=== PATIENT | female | born 1975 | race Caucasian/White ===

== ENCOUNTER 2020-06-21 08:59 | Observation (INO) | payer OTHER, BC, SELFPAY ==
[2020-06-21] VITALS (9 sets, daily range): BP systolic 109–139; BP diastolic 73–90; PULSE 80–105; RESP 16–22; TEMP 36.4–37.1; O2SAT 98–100; BMI 38.9; BMI 39.0; BMI 39.2
--- NOTE | 2020-06-21 09:26 | ED.DCSUM_ITS ---
History of Present Illness Chief Complaint: Abd Pain Informant: Patient Onset: Days Context: Gradual Onset Current Severity: Moderate Maximum Severity: Moderate Narrative: Patient presents secondary to left upper quadrant pain wraps around to the left CVA region. Patient states pain is been ongoing for couple days and was gradual in onset. She denies fever or chills. No vomiting. No diarrhea or constipation. No urinary symptoms. Patient was seen by her PCP and reportedly blood work was unremarkable. She had an ultrasound this morning but does not know the results of this. She does report feeling short of breath because she has increased abdominal pain when she breathes deeply. - Past Medical History (1) IBS (irritable bowel syndrome) Status: Chronic Past Medical History - Allergies and Home Meds Allergies/Adverse Reactions: Allergies sulfamethoxazole [From Bactrim] Allergy (Mild, Verified 06/21/20 09:00) Rash trimethoprim [From Bactrim] Allergy (Mild, Verified 06/21/20 09:00) Rash naproxen [From Naprosyn] Allergy (Verified 06/21/20 09:00) Anaphylaxis topiramate [From Topamax] Allergy (Verified 06/21/20 09:00) Hives sulfate drugs Allergy (Uncoded 06/21/20 09:00) Hives tape Allergy (Uncoded 06/21/20 09:00) Rash Primary Care Physician: Monica Carmen MD [Primary Care Provider] - Surgical History: appendectomy, cholecystectomy Smoking Status: Never smoker Review of Systems General: Denies: Chills, Fever Eyes: Denies: Visual changes - bilaterally ENT: Denies: Bilateral ear pain Cardiovascular: Denies: Chest pain Respiratory: Reports: Dyspnea. Denies: Cough Gastrointestinal: Reports: Abdominal pain. Denies: Vomiting, Diarrhea Genitourinary: Denies: Dysuria Musculoskeletal: Denies: Swelling, Extremity Pain Skin: Denies: Rash Neurological: Denies: Headache Hematologic: Denies: Easy bruising, Easy bleeding Allergy: Denies: Uticaria Physical Exam Vital Signs/Narrative: Vital Signs Temp Pulse Resp BP Pulse Ox 06/21/20 09:00 97.5 F L 100 21 H 139/73 H 99 Inital Vital Signs reviewed: Yes General: Well nourished, Well developed Head: Normocephalic ENT: Moist mucous membranes Cardiovascular: Regular rate, Regular rhythm Respiratory: No distress, CTA bilaterally Abdomen: Soft, Tender - Left upper quadrant tenderness to palpation.. Negative for: Guarding, Rebound tenderness Back: CVA tenderness - Mild left CVA tenderness Extremities: Nontender, No edema Skin: Normal color, No rash Neurological: Alert, Oriented x3, Normal Strength, Normal Sensation Psychological: Normal affect Diagnostic/Tx/Re-eval Impressions Abdomen/Pelvis CT 06/21/20 10:35 IMPRESSION: Focal infiltrate in the left lower lobe. Status post cholecystectomy. Sigmoid diverticulosis. Electronically Signed: Ja Pacheco MD at 13:14 EST , Service support , Chest CTA 06/21/20 10:35 IMPRESSION: Multiple bilateral pulmonary emboli. Focal infiltrate in the left lower lobe. Electronically Signed: Ja Pacheco MD at 13:16 EST , Service support , Chest X-Ray 06/21/20 11:05 IMPRESSION: Normal x-ray examination of the chest. Electronically Signed: Ja Pacheco MD at 12:11 EST , Service support , 06/21/20 10:35 Abdomen/Pelvis WITH Contrast [CT] Stat CTA Chest W/WO Contrast [CT] Stat 06/21/20 11:05 Chest 1 View (Portable) [RAD] Stat 06/21/20 10:55 Mucosa - Nose SARS-CoV-2 Antigen (Rapid) - Final Laboratory Results 06/21/20 06/21/20 06/21/20 09:55 09:55 09:55 WBC 18.6 H RBC 4.67 Hgb 13.2 Hct 40.9 MCV 87.6 MCH 28.3 MCHC 32.3 RDW Std Deviation 39.3 RDW Coeff of Renee 12.2 Plt Count 319 MPV 9.1 Immature Gran % (Auto) 0.600 Neut % (Auto) 87.6 H Lymph % (Auto) 6.8 L [place] % (Auto) 4.5 Eos % (Auto) 0.1 Baso % (Auto) 0.4 Absolute Neuts (auto) 16.3 H Absolute Lymphs (auto) 1.27 Nucleated RBC % 0 D-Dimer Quant (PE/DVT) 2.50 H* Sodium 136 Potassium 4.5 Chloride 104 Carbon Dioxide 27.0 Anion Gap 5 BUN 7 Creatinine 0.79 Estim Creat Clear Calc 76.74 Est GFR (MDRD) Af Amer 102 Est GFR (MDRD) Non-Af 84 BUN/Creatinine Ratio 8.8 L Glucose 105 Calcium 8.7 Total Bilirubin 0.40 Direct Bilirubin 0.14 AST 143 H ALT 78 H Alkaline Phosphatase 228 H Troponin I B-Natriuretic Peptide Total Protein 7.9 Albumin 3.0 L Globulin 4.9 H Lipase 140 Serum , Qual Urine Color Urine Clarity Urine pH Ur Specific [place] Urine Protein Urine Glucose (UA) Urine Ketones Urine Occult Blood Urine Nitrite Urine Bilirubin Urine Urobilinogen Ur Leukocyte Esterase Urine RBC Urine WBC Ur Squamous Epith Cells Urine Bacteria Urine Mucus 06/21/20 06/21/20 06/21/20 09:55 09:55 09:55 WBC RBC Hgb Hct MCV MCH MCHC RDW Std Deviation RDW Coeff of Renee Plt Count MPV Immature Gran % (Auto) Neut % (Auto) Lymph % (Auto) [place] % (Auto) Eos % (Auto) Baso % (Auto) Absolute Neuts (auto) Absolute Lymphs (auto) Nucleated RBC % D-Dimer Quant (PE/DVT) Sodium Potassium Chloride Carbon Dioxide Anion Gap BUN Creatinine Estim Creat Clear Calc Est GFR (MDRD) Af Amer Est GFR (MDRD) Non-Af BUN/Creatinine Ratio Glucose Calcium Total Bilirubin Direct Bilirubin AST ALT Alkaline Phosphatase Troponin I < 0.015 B-Natriuretic Peptide 20.1 Total Protein Albumin Globulin Lipase Serum , Qual NEGATIVE Urine Color Urine Clarity Urine pH Ur Specific [place] Urine Protein Urine Glucose (UA) Urine Ketones Urine Occult Blood Urine Nitrite Urine Bilirubin Urine Urobilinogen Ur Leukocyte Esterase Urine RBC Urine WBC Ur Squamous Epith Cells Urine Bacteria Urine Mucus 06/21/20 12:18 WBC RBC Hgb Hct MCV MCH MCHC RDW Std Deviation RDW Coeff of Renee Plt Count MPV Immature Gran % (Auto) Neut % (Auto) Lymph % (Auto) [place] % (Auto) Eos % (Auto) Baso % (Auto) Absolute Neuts (auto) Absolute Lymphs (auto) Nucleated RBC % D-Dimer Quant (PE/DVT) Sodium Potassium Chloride Carbon Dioxide Anion Gap BUN Creatinine Estim Creat Clear Calc Est GFR (MDRD) Af Amer Est GFR (MDRD) Non-Af BUN/Creatinine Ratio Glucose Calcium Total Bilirubin Direct Bilirubin AST ALT Alkaline Phosphatase Troponin I B-Natriuretic Peptide Total Protein Albumin Globulin Lipase Serum , Qual Urine Color Yellow Urine Clarity Sl. Cloudy Urine pH 6.0 Ur Specific [place] 1.015 Urine Protein Negative Urine Glucose (UA) Normal Urine Ketones 5 H Urine Occult Blood 25 H Urine Nitrite Negative Urine Bilirubin Negative Urine Urobilinogen Normal Ur Leukocyte Esterase Negative Urine RBC 0 SEEN Urine WBC 0-5 SEEN Ur Squamous Epith Cells 0-5 SEEN Urine Bacteria 1+ Urine Mucus 0 SEEN - EKG Initial EKG Interpretation: Sinus Rhythm - Sinus at 94 with no acute ischemia. - Medical Decision Making Patient was quite uncomfortable on examination. She was given morphine and Phenergan stating that Zofran did not work for her. CBC revealed significant leukocytosis with a white count of 18. Chemistry studies largely unremarkable. D-dimer elevated at 2.5. In light of this with the patient having left upper quadrant pain CTA of the chest was obtained as well as a CT abdomen and pelvis with p.o. and IV contrast. Test results indicate bilateral PEs with left lower lobe infiltrate. No acute findings noted in the abdomen. Patient did require a second dose of analgesics for comfort. A dose of Eliquis has been ordered along with a hypercoagulable panel. Patient states that she did have some calf tenderness approximately a week ago, but no recent travel or immobilization. She does report that her control was recently changed. She is not a smoker. In light of the infiltrate noted on CTA with elevated white count she is covered a dose of Rocephin and Zithromax. I have recommended observation overnight for pain control and monitoring her oxygenation status. I will speak with the hospitalist. 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
--- NOTE | 2020-06-21 09:27 | NURSING ---
CALLED [facility], TALKED TO ANAI IN RADIOLOGY. REQUESTED A COPY OF THE ULTRASOUND ABD DONE THIS MORNING. THEY WILL FAX IT TO US.
[2020-06-21 10:04] LABS: Absolute Lymphocyte Count 1.27 X10^3/uL (0.83-4.51); Absolute Neutrophil Count 16.3 X10^3/uL (2.0-7.7); Basophil# 0.07 X10^3/uL; Basophil% 0.4 % (0-1); Eosinophil# 0.02 X10^3/uL; Eosinophils% 0.1 % (0-5); Hematocrit 40.9 % (37-47); Hemoglobin 13.2 g/dL (12.0-15.0); Lymphocyte # 1.27 X10^3/ul (4.0); Lymphocyte % 6.8 % (19-41); Mean Corp Hgb Conc 32.3 g/dL (32-36); Mean Corpuscular Hgb 28.3 pg (27.0-32.0); Mean Corpuscular Volume 87.6 fL (81-99); Mean Platelet Vol. 9.1 fl (6.2-12.0); Monocyte# 0.84 X10^3/uL; Monocyte% 4.5 % (0-10); NRBC Flagged by Analyzer 0 % (0-5); Neutrophil # 16.31 X10^3/uL (2.7-7.7); Neutrophil % 87.6 % (47-70); Platelet Count 319 K/mm3 (150-450); RBC Distribution Width CV 12.2 % (11.6-14.6); RBC Distribution Width SD 39.3 fl (35.1-43.9); Red Blood Count 4.67 M/mm3 (4.2-5.4); White Blood Count 18.6 K/mm3 (4.4-11.0)
[2020-06-21 10:19] LABS: AST(SGOT) 143 U/L (15-37); Alanine Aminotransfer ALT/SGPT 78 U/L (13-56); Alkaline Phosphatase 228 U/L (45-117); Anion Gap 5 (5-15); BUN 7 mg/dL (7-18); BUN/Creat Ratio 8.8 RATIO (10-20); Bilirubin, Direct 0.14 mg/dL (0.00-0.30); Calcium,Total 8.7 mg/dL (8.5-10.1); Chloride 104 mmol/L (98-107); Creatinine, Serum 0.79 mg/dL (0.55-1.02); EST Glomerular Filtration Rate 84 mL/min (>60); Est Glom Filt Rate - Afr Amer 102 mL/min (>60); Estimated Creatinine Clearance 76.74 ml/min; Globulin 4.9 g/dL (2.2-4.2); Glucose 105 mg/dL (74-106); Lipase 140 U/L (73-393); Potassium 4.5 mmol/L (3.5-5.1); Protein, Total 7.9 g/dL (6.4-8.2); Sodium Level 136 mmol/L (136-145)
[2020-06-21] MEDS: Morphine 4 MG/ML Syringe IV (10:29)
[2020-06-21] MEDS: proMETHazine 25 MG/ML Syringe 12.5 MG IV (10:29)
[2020-06-21] MEDS: 0.9% Normal Saline 1,000 ML 150 ML IV (10:30)
[2020-06-21 10:35] LABS: Internal QC Validated? YES +Cl - CLEAR BKGD
--- NOTE | 2020-06-21 10:35 | CT_ITS ---
STUDY: CT ABDOMEN AND PELVIS WITH CONTRAST REASON FOR EXAM: Female, 44 years old. LUQ pain, increased SOB, nausea, elevated WBC, elevated D-dimer. RADIATION DOSAGE (If Supplied By Facility): CTDIvol = ( 16.18 ) mGy, DLP = ( 1477.84 ) mGycm TECHNIQUE: Transaxial images were obtained from the dome of the diaphragm to the symphysis pubis with oral contrast. Oral and amp; IV Gastrografin and amp; 100mL Isovue-370 was administered. Sagittal and coronal images were reconstructed. Individualized dose optimization techniques were used for this CT. COMPARISON: None. FINDINGS: Left basilar infiltrate. The visualized portions of the heart are within normal limits. Normal liver. The patient is status post cholecystectomy. Normal spleen. Normal pancreas. Normal bilateral adrenal glands. Normal right kidney. Normal left kidney. Normal visualized stomach. Normal small intestine. There are multiple colonic diverticula consistent with diverticulosis. Moderate amount of fecal material is seen in the colon. The appendix is visualized and appears normal. Normal abdominal aorta. Normal inferior vena cava. Normal retroperitoneum. Normal urinary bladder. Normal abdominal wall. Loss of the normal lumbar lordosis. CT/Abdomen/Pelvis WITH Contrast IMPRESSION: Focal infiltrate in the left lower lobe. Status post cholecystectomy. Sigmoid diverticulosis. Electronically Signed: Ja Pacheco MD at 13:14 EST , Service support ,
--- NOTE | 2020-06-21 10:35 | CT_ITS ---
STUDY: CTA CHEST REASON FOR EXAM: Female, 44 years old. LUQ pain, increased SOB, nausea, elevated WBC, elevated D-dimer. RADIATION DOSAGE (If Supplied By Facility): CTDIvol = ( 16.18 ) mGy, DLP = ( 1477.84 ) mGycm TECHNIQUE: The examination was performed with the intravenous administration of Oral and amp; IV Gastrografin and amp; 100mL Isovue-370. Post-processing of the angiographic images was performed, with multiplanar reformation and 3D reconstruction. Individualized dose optimization techniques were used for this CT. COMPARISON: None. FINDINGS: Multiple bilateral intraluminal filling defects in branches of the right and left upper and lower pulmonary arteries in keeping with bilateral pulmonary emboli. Moderate-sized filling defect is also seen in the right interlobar pulmonary artery. Normal thoracic aorta and visualized great vessels. There is no demonstrated aortic dissection. Normal heart and pericardium. Normal mediastinum. Normal hilar regions. Normal visualized trachea and bronchi. The lungs are well expanded. Focal left lower lobe infiltrate. Normal pleura. Normal chest wall structures. Normal osseous structures. Normal visualized upper abdomen. CT/CTA Chest W/WO Contrast IMPRESSION: Multiple bilateral pulmonary emboli. Focal infiltrate in the left lower lobe. Electronically Signed: Ja Pacheco MD at 13:16 EST , Service support ,
[2020-06-21 10:36] LABS: Pregnancy, Serum, hCG Quali. NEGATIVE Negative
--- NOTE | 2020-06-21 11:05 | RAD_ITS ---
STUDY: X-RAY CHEST REASON FOR EXAM: Female, 44 years old. ABD PAIN WITH NAUSEA, LOWER BACK PAIN, AND SHORTNESS OF BREATH. TECHNIQUE: Single AP portable view of the chest. COMPARISON: None. FINDINGS: EKG electrode traversing. The lungs are clear and expanded. There is no demonstrated pleural abnormality. Normal size heart. A loop recording device is seen overlying the left cardiac border. Normal mediastinum and noy. Normal visualized pulmonary arteries. Normal visualized aortic arch and descending thoracic aorta. Normal visualized thoracic spine. Normal visualized ribs, clavicles, and shoulders. There is no demonstrated abnormality of the visualized soft tissue structures of the upper abdomen. RAD/Chest 1 View (Portable) IMPRESSION: Normal x-ray examination of the chest. Electronically Signed: Ja Pacheco MD at 12:11 EST , Service support ,
[2020-06-21 12:24] LABS: Mucous, Urine 0 SEEN /hpf (<or=2+); Red Blood Cells-Urine 0 SEEN /hpf (0-5)
[2020-06-21 12:31] LABS: Color, Urine Yellow (Yellow); Glucose, Dipstick Normal (Normal); Ketone-Dipstick 5 mg/dl (Negative); Leukocyte Esterase-Dipstick Negative /ul (Negative); Nitrite-Dipstick Negative (Negative); Occult Blood-Urine 25 /ul (Negative); Protein-Dipstick Negative (Negative); Specific Gravity, Urine 1.015 (1.002-1.030); Urine Bilirubin Dipstick Negative (Negative); Urine Clarity Sl. Cloudy (Clear); Urine Urobilinogen Normal (Normal)
[2020-06-21] MEDS: proMETHazine 25 MG/ML Syringe 6.25 MG IV (12:34)
[2020-06-21] MEDS: HYDROmorphone 0.5 MG/0.5 ML SYRINGE IV (12:35)
[2020-06-21 12:37] LABS: White Blood Cells 0-5 SEEN /hpf (0-5)
[2020-06-21 12:38] LABS: Bacteria 1+ /hpf (None Seen); Squamous Epithelial Cells - UA 0-5 SEEN /hpf (5-10)
--- NOTE | 2020-06-21 13:08 | EKG12_ITS ---
Test Reason : SOB Blood Pressure : / mmHG Vent. Rate : 094 BPM Atrial Rate : 094 BPM P-R Int : 120 ms QRS Dur : 072 ms QT Int : 368 ms P-R-T Axes : 027 050 035 degrees QTc Int : 460 ms Normal sinus rhythm Normal ECG Confirmed by PURNIMA PARRY, JANICE ([id number]), publishing editor CECIL CAST ([id number]) on 06/26/2020 10:41:43 AM Referred By: MCKAY Confirmed By:JANICE FELTON MD
[2020-06-21 14:08] LABS: BNP,B-Type NATRIURETIC PEPTIDE 20.1 pg/mL (0-100)
[2020-06-21] MEDS: Ceftriaxone 1 GM/50 ML BAG IV (14:13)
[2020-06-21] MEDS: APIXABAN 5 MG TABLET 10 MG PO ×2 (14:14→22:59)
--- NOTE | 2020-06-21 14:25 | NURSING ---
DR AUSTIN FOR DR BASHIR
--- NOTE | 2020-06-21 14:33 | NURSING ---
PCU KOTSONIS BILATERAL PES, PNEUMONIA
--- NOTE | 2020-06-21 14:34 | HP.PCM_ITS ---
History of Present Illness Date of Admission: 06/21/20 Chief Complaint: Abdominal pain The patient is a 44 year old F with a PMH as below who presents to the hospital with abdominal pain that has been going on for several days. She states that she does have some shortness of breath as well because she cannot take a deep breath because of the belly pain. She had seen her PCP and lab work was unremarkable. However in the ER she was found to be a little bit tachycardic with a leukocytosis to 18 and she had an elevated D-dimer so CTA was obtained which demonstrated bilateral pulmonary embolisms with either a pulmonary infarct or pneumonia in the left lower lobe. She was given a dose of Eliquis as well as antibiotics and started on IV fluids. She does state that few days ago she was having some calf pain and actually had joked to a colleague that she probably had blood clots in her legs, this then progressed to some back pain which is what she saw her PCP for who gave her a muscle relaxant, and then she developed the left upper quadrant abdominal pain. She denies any long travel, she does not smoke and she is on a control but this was changed recently. Past Medical History Past Medical History (Chronic Problems): Chronic Problems (Last Updated 06/21/20 @ 15:[address] Cristian Esparza MD) IBS (irritable bowel syndrome) (Chronic) POTS (postural orthostatic tachycardia syndrome) (Chronic) Medical History: Medical History (Last Updated 06/21/20 @ 15:[address] Cristian Esparza MD) POTS (postural orthostatic tachycardia syndrome) (Chronic) I49.8 Allergies sulfamethoxazole [From Bactrim] Allergy (Mild, Verified 06/21/20 09:00) Rash trimethoprim [From Bactrim] Allergy (Mild, Verified 06/21/20 09:00) Rash naproxen [From Naprosyn] Allergy (Verified 06/21/20 09:00) Anaphylaxis topiramate [From Topamax] Allergy (Verified 06/21/20 09:00) Hives sulfate drugs Allergy (Uncoded 06/21/20 09:00) Hives tape Allergy (Uncoded 06/21/20 09:00) Rash Home Medications: Ambulatory Orders Medication Instructions Recorded Albuterol Inhaler [Ventolin Hfa 2 puff INHALATION Q4H PRN PRN 08/29/15 (SP)] Colestipol HCl 3 tab PO DAILY 06/21/20 Ethinyl Estradiol/Drospirenone 1 ea PO DAILY 06/21/20 [Mirna 28 Tablet] Fludrocortisone Acetate [Florinef] 0.15 mg PO DAILY 06/21/20 Fluvoxamine Maleate [Luvox] 50 mg PO QHS 06/21/20 Lorazepam [Ativan] 1 mg PO DAILY PRN PRN 06/21/20 Metoprolol Tartrate [Lopressor 25 mg PO TID 06/21/20 (Beta Randi)] Midodrine HCl 2.5 mg PO TID 06/21/20 Potassium Chloride [Klor-Con M10] 10 meq PO BID 06/21/20 Surgical History: appendectomy, cholecystectomy Smoking Status: Never smoker Alcohol: None Drugs: None - *Family History Maternal History Items: No pertinent history Cousin History Items: - - Provoked PE Review of Systems Constitutional: Denies: Chills, Fever, Weight Change HEENT: Denies: Head Aches, Sinus Congestion, Sinus Drainage Cardiovascular: Denies: Chest Pain, Palpitations Respiratory: Reports: Shortness of Breath. Denies: Cough, Shortness of breath at rest, Sputum production Gastrointestinal: Reports: Abdominal Pain. Denies: Diarrhea, Nausea, Vomiting Genitourinary: Denies: Dysuria Musculoskeletal: Denies: Joint Pain, Joint Tenderness Skin: Denies: Rash, Wounds Neurological: Denies: Numbness, Tingling, Focal weakness Psychiatric: Denies: Anxiety, Depression Hematologic/ Lymphatic: Denies: Easy Bruising, Easy Bleeding VTE Information - Inpt Only VTE Present on Admission: No Patient Problems: Active and Suspected Problems (Last Updated 06/21/20 @ 15:[address] Cristian Esparza MD) Bilateral pulmonary embolism (Acute) Left lower lobe pneumonia (Acute) - Physical Exam Vitals/I&O's: Vital Signs Temp Pulse Resp BP Pulse Ox 97.5 F L 105 H 22 H 124/82 H 98 06/21/20 09:00 06/21/20 14:17 06/21/20 14:17 06/21/20 14:17 06/21/20 14:17 Oxygen Delivery Method Room Air Weight: 220 lb Body Mass Index (BMI) 38.9 General: Alert, Oriented x3, Cooperative, No apparent distress HEENT: Atraumatic, PERRLA, EOMI, Normocephalic Oral: Moist Mucosa Neck: Supple, No JVD Lungs: Normal air movement, No rhonchi, No wheeze, No rales, Diminished Cardiovascular: Regular Rhythm, Normal S1, Normal S2, No murmurs, Tachycardic Abdomen: Soft, Non-Distended, No Hepato-splenomegaly, Tender - Minimal left upper quadrant Extremities: No edema, Capillary Refill Less than 3 Seconds Skin: No rashes, No breakdown Neurological: Neuro grossly intact, Sensory exam intact to light touch and pain Psych/Mental Status: Normal Affect, Appropriate Microbiology Past 72 Hours 06/21/20 10:55 Mucosa - Nose SARS-CoV-2 Antigen (Rapid) - Final Laboratory Results 06/21/20 09:55: WBC 18.6 H, RBC 4.67, Hgb 13.2, Hct 40.9, MCV 87.6, MCH 28.3, MCHC 32.3, RDW Std Deviation 39.3, RDW Coeff of Renee 12.2, Plt Count 319, MPV 9.1, Immature Gran % (Auto) 0.600, Neut % (Auto) 87.6 H, Lymph % (Auto) 6.8 L, [place] % (Auto) 4.5, Eos % (Auto) 0.1, Baso % (Auto) 0.4, Absolute Neuts (auto) 16.3 H, Absolute Lymphs (auto) 1.27, Nucleated RBC % 0 06/21/20 09:55: D-Dimer Quant (PE/DVT) 2.50 H* 06/21/20 09:55: Sodium 136, Potassium 4.5, Chloride 104, Carbon Dioxide 27.0, Anion Gap 5, BUN 7, Creatinine 0.79, Estim Creat Clear Calc 76.74, Est GFR (MDRD) Af Amer 102, Est GFR (MDRD) Non-Af 84, BUN/Creatinine Ratio 8.8 L, Glucose 105, Calcium 8.7, Total Bilirubin 0.40, Direct Bilirubin 0.14, AST 143 H , ALT 78 H, Alkaline Phosphatase 228 H, Total Protein 7.9, Albumin 3.0 L, Globulin 4.9 H, Lipase 140 06/21/20 09:55: Serum , Qual NEGATIVE 06/21/20 09:55: Troponin I < 0.015 06/21/20 09:55: B-Natriuretic Peptide 20.1 06/21/20 12:18: Urine Color Yellow, Urine Clarity Sl. Cloudy, Urine pH 6.0, Ur Specific [place] 1.015, Urine Protein Negative, Urine Glucose (UA) Normal, Urine Ketones 5 H, Urine Occult Blood 25 H, Urine Nitrite Negative, Urine Bilirubin Negative, Urine Urobilinogen Normal, Ur Leukocyte Esterase Negative, Urine RBC 0 SEEN, Urine WBC 0-5 SEEN, Ur Squamous Epith Cells 0-5 SEEN, Urine Bacteria 1+, Urine Mucus 0 SEEN 06/21/20 13:58: Protein C Antigen Pending, Functional Protein C Pending, Prot C Funct Activity Pending, Antithrombin III Ag Pending, Func Antithrombin III Pending, Factor V Leiden Mutat Pending, Beta-2-GPI IgG Ab Pending, Beta-2-GPI IgA Ab Pending, Beta-2-GPI IgM Ab Pending, Anti-Cardiolipin IgG Ab Pending, Anti-Cardiolipin IgM Ab Pending, Factor II DNA Analysis Pending Current Medications Sodium Chloride () 1,000 mls @ 150 mls/hr IV .Q6H40M GELY Last Admin: 06/21/20 10:30 Dose: 150 mls/hr Documented by: Assessment/Plan All Active Problems (Last Updated 06/21/20 @ 15:[address] Cristian Esparza MD) Bilateral pulmonary embolism (Acute) Left lower lobe pneumonia (Acute) 1. Bilateral pulmonary embolisms with either pulmonary infarct or pneumonia -She does have a leukocytosis which could be secondary to an infarct or pneumonia, however will cover with antibiotics -She is not hypoxic and is afebrile -Continue with Eliquis and milligrams twice daily for a week, then she can decrease to 5 mg twice daily and follow-up with hematology as an outpatient -Continue with IV fluids tonight 2. Postural orthostatic tachycardia syndrome -We will continue with her metoprolol, midodrine, and Florinef -I anticipate some variability of her vital signs throughout the day 3. Anxiety -Stable -Continue with Luvox and Ativan DVT: Eliquis Inpatient E&M: [id number] Init Hosp L3
[2020-06-21] MEDS: 0.9% Saline Lock 10 ML Syringe IV (16:26)
[2020-06-21] MEDS: Morphine 2 MG/ML Syringe IV ×3 (16:26→23:00)
[2020-06-21] MEDS: 0.9% Normal Saline 1,000 ML 100 ML IV (17:53)
[2020-06-21] MEDS: Metoprolol Tartrate 25 MG Tablet PO (17:54)
[2020-06-21] MEDS: Midodrine HCl 5 MG Tablet 2.5 MG PO (17:57)
[2020-06-21] MEDS: Ondansetron 4 MG/2 ML Vial IV (19:52)
[2020-06-21] MEDS: MELATONIN 3 MG TABLET PO (22:59)
[2020-06-21] MEDS: fluvoxaMINE Maleate 50 MG Tablet PO (23:00)
[2020-06-22] VITALS (16 sets, daily range): BP systolic 98–122; BP diastolic 58–86; PULSE 71–91; RESP 16–18; TEMP 36.5–36.9; O2SAT 95–97
[2020-06-22] MEDS: Morphine 2 MG/ML Syringe IV ×6 (01:00→20:59)
[2020-06-22] MEDS: 0.9% Normal Saline 1,000 ML 100 ML IV ×2 (06:08→16:20)
[2020-06-22 06:22] LABS: Absolute Lymphocyte Count 2.01 X10^3/uL (0.83-4.51); Absolute Neutrophil Count 7.5 X10^3/uL (2.0-7.7); Basophil# 0.03 X10^3/uL; Basophil% 0.3 % (0-1); Eosinophil# 0.04 X10^3/uL; Eosinophils% 0.4 % (0-5); Hematocrit 36.5 % (37-47); Hemoglobin 11.4 g/dL (12.0-15.0); Lymphocyte # 2.01 X10^3/ul (4.0); Lymphocyte % 19.1 % (19-41); Mean Corp Hgb Conc 31.2 g/dL (32-36); Mean Corpuscular Hgb 28.1 pg (27.0-32.0); Mean Corpuscular Volume 90.1 fL (81-99); Mean Platelet Vol. 9.2 fl (6.2-12.0); Monocyte# 0.95 X10^3/uL; NRBC Flagged by Analyzer 0 % (0-5); Neutrophil # 7.46 X10^3/uL (2.7-7.7); Neutrophil % 70.8 % (47-70); Platelet Count 278 K/mm3 (150-450); RBC Distribution Width CV 12.4 % (11.6-14.6); RBC Distribution Width SD 40.7 fl (35.1-43.9); Red Blood Count 4.05 M/mm3 (4.2-5.4); White Blood Count 10.5 K/mm3 (4.4-11.0)
[2020-06-22 06:45] LABS: Anion Gap 6 (5-15); BUN 4 mg/dL (7-18); BUN/Creat Ratio 6.2 RATIO (10-20); Chloride 106 mmol/L (98-107); Creatinine, Serum 0.65 mg/dL (0.55-1.02); EST Glomerular Filtration Rate 106 mL/min (>60); Est Glom Filt Rate - Afr Amer 128 mL/min (>60); Estimated Creatinine Clearance 93.27 ml/min; Glucose 125 mg/dL (74-106); Potassium 3.8 mmol/L (3.5-5.1); Sodium Level 136 mmol/L (136-145)
[2020-06-22] MEDS: Midodrine HCl 5 MG Tablet 2.5 MG PO ×3 (08:26→16:14)
[2020-06-22] MEDS: APIXABAN 5 MG TABLET 10 MG PO ×2 (08:26→22:05)
[2020-06-22] MEDS: Fludrocortisone Acetate 0.1 MG Tablet 0.15 MG PO (08:27)
[2020-06-22] MEDS: Metoprolol Tartrate 25 MG Tablet PO ×3 (08:27→16:14)
--- NOTE | 2020-06-22 08:27 | PCM.PROGNOTE ---
Patient Problems: Active and Suspected Problems (Last Updated 06/21/20 @ 15:[address] Cristian Esparza MD) Bilateral pulmonary embolism (Acute) Left lower lobe pneumonia (Acute) Subjective: Chief complaint: Follow-up after admission for multiple bilateral PEs and left lower lobe community-acquired pneumonia. Patient seen and examined. No acute events overnight. This morning, she complained of left lateral chest/left upper quadrant pleuritic pain when taking a deep breath. Denied fever or chills. Denied abdominal pain, nausea or vomiting. Her vital signs are stable, on room air. - Physical Exam Vitals/I&O's: Vital Signs Temp Pulse Resp BP Pulse Ox 98.0 F 78 16 122/86 H 96 06/22/20 04:00 06/22/20 07:00 06/22/20 04:00 06/22/20 04:00 06/22/20 04:15 Oxygen Delivery Method Room Air Weight: 221 lb 4.095 oz Body Mass Index (BMI) 39.2 Intake and Output for Last 24 Hours 06/20/20 06/21/20 06/22/20 23:59 23:59 23:59 Intake Total 1305 / 1305 1000 / 1000 Balance 1305 / 1305 1000 / 1000 General: Alert, Oriented x3, Cooperative, No apparent distress HEENT: Atraumatic, PERRLA, EOMI, Normocephalic Oral: Moist Mucosa, No Gingival or Mucosal Lesions/ Ulcerations Neck: Supple, No JVD, Negative Carotid Bruits, Trachea Midline, Thyroid Normal Size and Texture Lungs: Clear to auscultation, No rhonchi, No wheeze, No rales, - - Decreased breath sounds at the left base, otherwise clear. Cardiovascular: Regular rate, Regular Rhythm, Normal S1, Normal S2, PMI Normal Abdomen: Bowel Sounds Present, Soft, Non Tender, Non-Distended, No Hepato-splenomegaly, Obese Extremities: No clubbing, No cyanosis, No edema Skin: No rashes, No breakdown Lymphatic: No Cervical, Supraclavicular, or Inguinal Adenopathy Neurological: Cranial nerves II-XII grossly intact, Motor Exam 5/5 strength throughout Psych/Mental Status: Normal Affect, Appropriate, Alert and oriented to time, place, person, mood and affect Microbiology Past 72 Hours 06/21/20 10:55 Mucosa - Nose SARS-CoV-2 Antigen (Rapid) - Final Laboratory Results 06/21/20 09:55: WBC 18.6 H, RBC 4.67, Hgb 13.2, Hct 40.9, MCV 87.6, MCH 28.3, MCHC 32.3, RDW Std Deviation 39.3, RDW Coeff of Renee 12.2, Plt Count 319, MPV 9.1, Immature Gran % (Auto) 0.600, Neut % (Auto) 87.6 H, Lymph % (Auto) 6.8 L, [place] % (Auto) 4.5, Eos % (Auto) 0.1, Baso % (Auto) 0.4, Absolute Neuts (auto) 16.3 H, Absolute Lymphs (auto) 1.27, Nucleated RBC % 0 06/21/20 09:55: D-Dimer Quant (PE/DVT) 2.50 H* 06/21/20 09:55: Sodium 136, Potassium 4.5, Chloride 104, Carbon Dioxide 27.0, Anion Gap 5, BUN 7, Creatinine 0.79, Estim Creat Clear Calc 76.74, Est GFR (MDRD) Af Amer 102, Est GFR (MDRD) Non-Af 84, BUN/Creatinine Ratio 8.8 L, Glucose 105, Calcium 8.7, Total Bilirubin 0.40, Direct Bilirubin 0.14, AST 143 H, ALT 78 H, Alkaline Phosphatase 228 H, Total Protein 7.9, Albumin 3.0 L, Globulin 4.9 H, Lipase 140 06/21/20 09:55: Serum , Qual NEGATIVE 06/21/20 09:55: Troponin I < 0.015 06/21/20 09:55: B-Natriuretic Peptide 20.1 06/21/20 12:18: Urine Color Yellow, Urine Clarity Sl. Cloudy, Urine pH 6.0, Ur Specific [place] 1.015, Urine Protein Negative, Urine Glucose (UA) Normal, Urine Ketones 5 H, Urine Occult Blood 25 H, Urine Nitrite Negative, Urine Bilirubin Negative, Urine Urobilinogen Normal, Ur Leukocyte Esterase Negative, Urine RBC 0 SEEN, Urine WBC 0-5 SEEN, Ur Squamous Epith Cells 0-5 SEEN, Urine Bacteria 1+, Urine Mucus 0 SEEN 06/21/20 13:58: Protein C Antigen Cancelled, Functional Protein C Cancelled, Prot C Funct Activity Cancelled, Antithrombin III Ag Cancelled, Func Antithrombin III Cancelled, Factor V Leiden Mutat Cancelled, Factor V Leiden Comment Cancelled, Beta-2-GPI IgG Ab Cancelled, Beta-2-GPI IgA Ab Cancelled, Beta-2-GPI IgM Ab Cancelled, Anti-Cardiolipin IgG Ab Cancelled, Anti-Cardiolipin IgM Ab Cancelled, Factor II DNA Analysis Cancelled 06/22/20 05:50: WBC 10.5, RBC 4.05 L, Hgb 11.4 L, Hct 36.5 L, MCV 90.1, MCH 28.1, MCHC 31.2 L, RDW Std Deviation 40.7, RDW Coeff of Renee 12.4, Plt Count 278, MPV 9.2, Immature Gran % (Auto) 0.400, Neut % (Auto) 70.8 H, Lymph % (Auto) 19.1, [place] % (Auto) 9.0, Eos % (Auto) 0.4, Baso % (Auto) 0.3, Absolute Neuts (auto) 7.5, Absolute Lymphs (auto) 2.01, Nucleated RBC % 0 06/22/20 05:50: Sodium 136, Potassium 3.8, Chloride 106, Carbon Dioxide 24.0, Anion Gap 6, BUN 4 L, Creatinine 0.65, Estim Creat Clear Calc 93.27, Est GFR (MDRD) Af Amer 128, Est GFR (MDRD) Non-Af 106, BUN/Creatinine Ratio 6.2 L, Glucose 125 H, Calcium 8.0 L Clinical Impression(s) from Imaging Studies Abdomen/Pelvis CT 06/21/20 10:35 IMPRESSION: Focal infiltrate in the left lower lobe. Status post cholecystectomy. Sigmoid diverticulosis. Electronically Signed: Ja Pacheco MD at 13:14 EST , Service support , Chest CTA 06/21/20 10:35 IMPRESSION: Multiple bilateral pulmonary emboli. Focal infiltrate in the left lower lobe. Electronically Signed: Ja Pacheco MD at 13:16 EST , Service support , Chest X-Ray 06/21/20 11:05 IMPRESSION: Normal x-ray examination of the chest. Electronically Signed: Ja Pacheco MD at 12:11 EST , Service support , Current Medications Acetaminophen (Acetaminophen 325 Mg Tablet) 650 mg PO Q6H PRN PRN PRN Reason: Pain Score 1-10/Temp > 100.7 F Albuterol Sulfate (Albuterol 2.5 Mg/3 Ml Vial.Neb.) 2.5 mg INHALATION Q4H PRN PRN PRN Reason: SHORTNESS OF BREATH Apixaban (Apixaban 5 Mg Tablet) 10 mg PO BID GELY Last Admin: 06/21/20 22:59 Dose: 10 mg Documented by: Colestipol HCl (Colestipol Hcl 1 Gm Tablet) 3 gm PO DAILY [facility] Fludrocortisone Acetate (Fludrocortisone Acetate 0.1 Mg Tablet) 0.15 mg PO DAILYCM [facility] Fluvoxamine Maleate (Fluvoxamine Maleate 50 Mg Tablet) 50 mg PO QHS [facility] Last Admin: 06/21/20 23:00 Dose: 50 mg Documented by: Sodium Chloride () 1,000 mls @ 100 mls/hr IV .Q10H GELY Last Admin: 06/22/20 06:08 Dose: 100 mls/hr Documented by: Azithromycin 500 mg/ Dextrose 255 mls @ 250 mls/hr IV Q24 GELY Ceftriaxone Sodium (Rocephin) 1 gm in 50 mls @ 100 mls/hr IV Q24 GELY Sodium Chloride () 250 mls @ 15 mls/hr IV .[id number] PRN PRN Reason: Saline Flush Sodium Chloride () 250 mls @ 15 mls/hr IV .[id number] PRN PRN Reason: Additional IVPB Infusion Lorazepam (Lorazepam 1 Mg Tablet) 1 mg PO DAILY PRN PRN PRN Reason: ANXIETY Melatonin (Melatonin 3 Mg Tablet) 3 mg PO QHS PRN PRN PRN Reason: INSOMNIA Last Admin: 06/21/20 22:59 Dose: 3 mg Documented by: Metoprolol Tartrate (Metoprolol Tartrate 25 Mg Tablet) 25 mg PO TIDCM [facility] Last Admin: 06/21/20 18:45 Dose: Not Given Documented by: Midodrine (Midodrine Hcl 5 Mg Tablet) 2.5 mg PO TIDCM [facility] Last Admin: 06/21/20 17:57 Dose: 2.5 mg Documented by: Morphine Sulfate (Morphine 2 Mg/Ml Syringe) 2 mg IV Q2H PRN PRN PRN Reason: Pain Score 6-10 Last Admin: 06/22/20 06:14 Dose: 2 mg Documented by: Ondansetron HCl (Ondansetron 4 Mg/2 Ml Vial) 4 mg IV Q8H PRN PRN PRN Reason: NAUSEA/VOMITING Last Admin: 06/21/20 19:52 Dose: 4 mg Documented by: Oxycodone HCl (Oxycodone 5 Mg Tablet) 5 mg PO Q6H PRN PRN PRN Reason: Pain Score 6-10 Sodium Chloride (0.9% Saline Lock 10 Ml Syringe) 10 - 40 ml IV UD PRN PRN Reason: SALINE FLUSH Last Admin: 06/21/20 16:26 Dose: 10 ml Documented by: Medical Necessity - Tobacco Use Smoking Status: Never smoker Tobacco Use: Non-smoker Assessment/Plan All Active Problems (Last Updated 06/21/20 @ 15:[address] Cristian Esparza MD) Bilateral pulmonary embolism (Acute) Left lower lobe pneumonia (Acute) This is a 44 years old female patient presented to the emergency room because of left upper quadrant/left lateral chest pleuritic pain and shortness of breath upon taking a deep breath, found to have acute multiple bilateral pulmonary emboli as well as left lower lobe community-acquired pneumonia. #1 acute multiple bilateral pulmonary emboli: Unprovoked. No risk factors for VTE's. Patient does use control pills but was started very recently. No family or personal history of blood clotting disorders. CTA chest as well as chest x-ray reviewed. COVID-19 antigen as well as PCR which was done today were negative. She is on loading dose of Eliquis. Respiratory status stable, pulse ox is maintained on room air. Patient complained of pleuritic left chest pain. She is allergic to naproxen. Plan: Continue same treatment, will do hypercoagulable work-up, start OxyIR as needed for pain. #2 acute left lower lobe community-acquired pneumonia: She is on IV Rocephin and Zithromax. She has been afebrile, leukocytosis resolved. As mentioned above, COVID-19 PCR and antigen were negative. Plan to continue same treatment. #3 postural orthostatic tachycardia syndrome: Currently, blood pressure and heart rate are stable. Continue Florinef, metoprolol and midodrine. #4 anxiety: Stable, continue Ativan as needed. #5 DVT prophylaxis: She is on Eliquis. This note was generated with [employer] dictation software. It may contain incorrect words, spelling, and punctuation that were not noted in checking the note before signing. Inpatient E&M: 28510 Subs Hosp L2
[2020-06-22] MEDS: 0.9% Saline Lock 10 ML Syringe IV ×2 (08:34→16:20)
[2020-06-22] MEDS: Ceftriaxone 1 GM/50 ML BAG IV (10:35)
[2020-06-22] MEDS: oxyCODONE 5 MG Tablet PO ×2 (11:43→18:10)
[2020-06-22] MEDS: Acetaminophen 325 MG Tablet 650 MG PO (19:39)
[2020-06-22] MEDS: fluvoxaMINE Maleate 50 MG Tablet PO (22:05)
[2020-06-23] VITALS (7 sets, daily range): BP systolic 97–137; BP diastolic 57–73; PULSE 89–90; RESP 18; TEMP 36.6–37.1; O2SAT 96–98
[2020-06-23] MEDS: MELATONIN 3 MG TABLET PO (00:10)
[2020-06-23] MEDS: oxyCODONE 5 MG Tablet PO ×2 (00:15→06:24)
[2020-06-23] MEDS: LORazepam 1 MG Tablet PO (02:27)
[2020-06-23] MEDS: 0.9% Normal Saline 1,000 ML 100 ML IV (02:27)
--- NOTE | 2020-06-23 08:22 | DCINST_ITS ---
- Discharge Diagnoses Current Active Problems: Current Active and Chronic Problems (Last Updated 06/21/20 @ 15:[address] Cristian Esparza MD) IBS (irritable bowel syndrome) (Chronic) Bilateral pulmonary embolism (Acute) Left lower lobe pneumonia (Acute) You will use the following diet at home:: Regular Your food should be the consistency of: Regular Discharge Activity: Return to Normal Activity Weight Bearing Status: Full weight bearing Call your doctor if you observe: Fever of 101 or Higher, Shortness of breath, Dizziness, Fainting spells, Chest pain, Increased palpitations (irregular heartbeat), Uncontrolled pain Instructions: Pleurisy, Pneumonia, Pulmonary Embolism Allergies/Adverse Reactions: Allergies sulfamethoxazole [From Bactrim] Allergy (Mild, Verified 06/21/20 09:00) Rash trimethoprim [From Bactrim] Allergy (Mild, Verified 06/21/20 09:00) Rash naproxen [From Naprosyn] Allergy (Verified 06/21/20 09:00) Anaphylaxis topiramate [From Topamax] Allergy (Verified 06/21/20 09:00) Hives sulfate drugs Allergy (Uncoded 06/21/20 09:00) Hives tape Allergy (Uncoded 06/21/20 09:00) Rash Medications to take at Discharge Albuterol Inhaler [Ventolin Hfa] 2 puff INHALATION Q4H PRN PRN 08/29/15 Colestipol HCl 3 tab PO DAILY 06/21/20 Ethinyl Estradiol/Drospirenone [Mirna 28 Tablet] 1 ea PO DAILY 06/21/20 Fludrocortisone Acetate [Florinef] 0.15 mg PO DAILY 06/21/20 Fluvoxamine Maleate [Luvox] 50 mg PO QHS 06/21/20 Lorazepam [Ativan] 1 mg PO DAILY PRN PRN 06/21/20 Metoprolol Tartrate [Lopressor (beta benitez)] 25 mg PO TID 06/21/20 Midodrine HCl 2.5 mg PO TID 06/21/20 Potassium Chloride [Klor-Con M10] 10 meq PO BID 06/21/20 Apixaban [Eliquis] 10 mg PO BID #90 tab 06/23/20 Levofloxacin [Levaquin] 750 mg PO DAILY #5 tab 06/23/20 Oxycodone [Oxyir] 5 mg PO Q8H PRN PRN 5 Days #14 tablet 06/23/20 The following prescriptions were given: Apixaban [Eliquis] 10 mg PO BID #90 tab Transmission Status: Pending to [facility]/pharmacy #[id number] Levofloxacin [Levaquin] 750 mg PO DAILY #5 tab Transmission Status: Pending to [facility]/pharmacy #[id number] Oxycodone [Oxyir] 5 mg PO Q8H PRN PRN 5 Days #14 tablet PRN Reason: Pain Score 6-10 Transmission Status: Sent to [facility]/pharmacy #[id number] Primary Care Physician: Monica Carmen MD [Primary Care Provider] - Please follow up with your Primary Care Physician in: 1 week. Test Results: Test results from this visit will be discussed in further detail at your follow- up appointment, if applicable.
[2020-06-23] MEDS: Acetaminophen 325 MG Tablet 650 MG PO (08:38)
[2020-06-23] MEDS: Ceftriaxone 1 GM/50 ML BAG IV (08:40)
[2020-06-23] MEDS: Fludrocortisone Acetate 0.1 MG Tablet 0.15 MG PO (08:41)
[2020-06-23] MEDS: Midodrine HCl 5 MG Tablet 2.5 MG PO (08:42)
[2020-06-23] MEDS: Metoprolol Tartrate 25 MG Tablet PO (08:43)
[2020-06-23] MEDS: APIXABAN 5 MG TABLET 10 MG PO (08:45)
--- NOTE | 2020-06-23 09:25 | CASEMGMT ---
Pt to be sent home on Eliquis at discharge and per [facility] pharmacist, pt has no charge for the Eliquis at this time. Sabine [facility] CM
--- NOTE | 2020-06-23 11:19 | PHA.DC.MC ---
Pharmacy Service has performed discharge medication reconciliation and counseling for this patient. 1. APIXABAN 10MG PO BID THRU 06/27, THEN 5MG PO BID STARTING 06/28 2. LEVOFLOXACIN 750MG PO DAILY X 5 DAYS 3. OXYCODONE 5MG PO Q8H PRN PAIN 6-10 The patient's discharge medication list was reviewed for discrepancies and discrepancies were resolved. Home Medications Albuterol Inhaler [Ventolin Hfa] 2 puff INHALATION Q4H PRN PRN 08/29/15 Colestipol HCl 3 tab PO DAILY 06/21/20 Ethinyl Estradiol/Drospirenone [Mirna 28 Tablet] 1 ea PO DAILY 06/21/20 Fludrocortisone Acetate [Florinef] 0.15 mg PO DAILY 06/21/20 Fluvoxamine Maleate [Luvox] 50 mg PO QHS 06/21/20 Lorazepam [Ativan] 1 mg PO DAILY PRN PRN 06/21/20 Metoprolol Tartrate [Lopressor (beta benitez)] 25 mg PO TID 06/21/20 Midodrine HCl 2.5 mg PO TID 06/21/20 Potassium Chloride [Klor-Con M10] 10 meq PO BID 06/21/20 Apixaban [Eliquis] 10 mg PO BID #90 tab 06/23/20 Levofloxacin [Levaquin] 750 mg PO DAILY #5 tab 06/23/20 Oxycodone [Oxyir] 5 mg PO Q8H PRN PRN 5 Days #14 tab 06/23/20 The patient was counseled on the following discharge medications and changes in medications for homegoing were reviewed. The Reason for Use, instructions for use, and potential side effects were reviewed for all new medications. The patient's questions regarding all of their medications were answered. The patient was able to verbally demonstrate an understanding of their discharge medications.
--- NOTE | 2020-06-23 11:30 | PCM.DC.SUM ---
Discharge Date and Diagnosis - Problem List Patient Problems: Active and Suspected Problems (Last Updated 06/21/20 @ 15:[address] Cristian Esparza MD) Bilateral pulmonary embolism (Acute) Left lower lobe pneumonia (Acute) Date of Admission: 06/21/20 Date of Discharge: 06/23/20 - Primary Discharge Diagnosis Acute Problems: Active Problems (Last Updated 06/21/20 @ 15:[address] Cristian Esparza MD) #1 bilateral pulmonary embolism (Acute) #2 left lower lobe community-acquired pneumonia (Acute) - Secondary Discharge Diagnosis Chronic Problems: Chronic Problems (Last Updated 06/21/20 @ 15:[address] Cristian Esparza MD) IBS (irritable bowel syndrome) (Chronic) POTS (postural orthostatic tachycardia syndrome) (Chronic) Hospital Course and Treatment Imaging Results: Clinical Impression(s) from Imaging Studies Abdomen/Pelvis CT 06/21/20 10:35 IMPRESSION: Focal infiltrate in the left lower lobe. Status post cholecystectomy. Sigmoid diverticulosis. Electronically Signed: Ja Pacheco MD at 13:14 EST , Service support , Chest CTA 06/21/20 10:35 IMPRESSION: Multiple bilateral pulmonary emboli. Focal infiltrate in the left lower lobe. Electronically Signed: Ja Pacheco MD at 13:16 EST , Service support , Chest X-Ray 06/21/20 11:05 IMPRESSION: Normal x-ray examination of the chest. Electronically Signed: Ja Pacheco MD at 12:11 EST , Service support , Operations: None Procedures: None Summary of Care Provided: Patient seen and examined on the day of discharge and appeared to be stable to be discharged home. Left lateral pleuritic chest pain has been improving. No shortness of breath. No fever chills. Her vital signs are stable. The patient is a 44 year old F presented to the emergency room because of left upper quadrant and left lateral pleuritic chest pain with shortness of breath and she was found to have acute bilateral multiple pulmonary emboli as well as acute left lower lobe pneumonia. On admission, she did have leukocytosis and her D-dimer was elevated. Chest x-ray showed no obvious infiltrate or consolidation. CTA chest done and showed multiple bilateral PEs as well as focal infiltrate of the left lower lobe. COVID-19 antigen and PCR was negative. Patient was admitted to the floor, started on IV Rocephin and Zithromax as well as loading dose of Eliquis for anticoagulation. Patient had no risk factors for VTE is and no personal or family history of clotting disorders. With IV antibiotic therapy, leukocytosis resolved and patient remained afebrile. She complained of pleuritic chest pain which was treated with OxyIR as needed. Because of this VTE was unprovoked, hypercoagulable work-up was sent and was pending at the time of discharge. Patient symptoms improved and she remained afebrile and remained on room air. Patient discharged home in a stable medical condition, discharged on Eliquis 10 mg p.o. twice daily for 5 days more of treatment to complete 7 days of loading dose and then instructed to take 5 mg p.o. twice daily discharged on Levaquin 750 mg p.o. daily for 5 days, continued on her previous home medications without any changes, recommended follow-up with PCP in 1 week. Patient Problems: Active and Suspected Problems (Last Updated 06/21/20 @ 15:[address] Cristian Esparza MD) Bilateral pulmonary embolism (Acute) Left lower lobe pneumonia (Acute) - Physical Exam Vitals/I&O's: Vital Signs Temp Pulse Resp BP Pulse Ox 97.8 F 89 18 97/57 L 96 06/23/20 09:00 06/23/20 09:26 06/23/20 09:26 06/23/20 09:00 06/23/20 09:00 Oxygen Delivery Method Room Air Weight: 221 lb 4.095 oz Body Mass Index (BMI) 39.2 Intake and Output for Last 24 Hours 06/21/20 06/22/20 06/23/20 23:59 23:59 23:59 Intake Total 1305 / 1305 4021.66 / 4021.66 1050 / 1050 Balance 1305 / 1305 4021.66 / 4021.66 1050 / 1050 General: Alert, Oriented x3, Cooperative, No apparent distress HEENT: Atraumatic, PERRLA, EOMI, Normocephalic Oral: Moist Mucosa, No Gingival or Mucosal Lesions/ Ulcerations Neck: Supple, No JVD, Negative Carotid Bruits, Trachea Midline, Thyroid Normal Size and Texture Lungs: Clear to auscultation, No rhonchi, No wheeze, No rales, Diminished Cardiovascular: Regular rate, Regular Rhythm, Normal S1, Normal S2, PMI Normal Abdomen: Bowel Sounds Present, Soft, Non Tender, Non-Distended, No Hepato-splenomegaly Extremities: No clubbing, No cyanosis, No edema Skin: No rashes, No breakdown Lymphatic: No Cervical, Supraclavicular, or Inguinal Adenopathy Neurological: Cranial nerves II-XII grossly intact, Motor Exam 5/5 strength throughout Psych/Mental Status: Normal Affect, Appropriate Microbiology Past 72 Hours 06/21/20 10:55 Mucosa - Nose SARS-CoV-2 Antigen (Rapid) - Final Laboratory Results 06/22/20 11:50: Protein C Antigen Pending, Prot C Funct Activity Pending, Functional Protein S Pending, Free Protein S Pending, Total Protein S Pending, Func Antithrombin III Pending, Factor V Leiden Mutat Pending, Anti-Cardiolipin IgG Ab Pending, Anti-Cardiolipin IgM Ab Pending Discharge Activity: Return to Normal Activity Weight Bearing Status: Full weight bearing Call your doctor if you observe: Fever of 101 or Higher, Shortness of breath, Dizziness, Fainting spells, Chest pain, Increased palpitations (irregular heartbeat), Uncontrolled pain Home Medications: Medications to take at Discharge Albuterol Inhaler [Ventolin Hfa] 2 puff INHALATION Q4H PRN PRN 08/29/15 Colestipol HCl 3 tab PO DAILY 06/21/20 Ethinyl Estradiol/Drospirenone [Mirna 28 Tablet] 1 ea PO DAILY 06/21/20 Fludrocortisone Acetate [Florinef] 0.15 mg PO DAILY 06/21/20 Fluvoxamine Maleate [Luvox] 50 mg PO QHS 06/21/20 Lorazepam [Ativan] 1 mg PO DAILY PRN PRN 06/21/20 Metoprolol Tartrate [Lopressor (beta benitez)] 25 mg PO TID 06/21/20 Midodrine HCl 2.5 mg PO TID 06/21/20 Potassium Chloride [Klor-Con M10] 10 meq PO BID 06/21/20 Apixaban [Eliquis] 10 mg PO BID #90 tab 06/23/20 Levofloxacin [Levaquin] 750 mg PO DAILY #5 tab 06/23/20 Oxycodone [Oxyir] 5 mg PO Q8H PRN PRN 5 Days #14 tab 06/23/20 Following Prescriptions Were Given to Patient: Apixaban [Eliquis] 10 mg PO BID #90 tab Transmission Status: [facility] by [id number] Levofloxacin [Levaquin] 750 mg PO DAILY #5 tab Transmission Status: Re[facility] by [id number] Oxycodone [Oxyir] 5 mg PO Q8H PRN PRN 5 Days #14 tab PRN Reason: Pain Score 6-10 Transmission Status: Re[facility] by [id number] Primary Care Physician: Monica Carmen MD [Primary Care Provider] - Please follow up with your Primary Care Physician in: 1 week. Patient Instructions: Pulmonary Embolism, Pleurisy, Pneumonia Disposition: Home Minutes spent on discharge:: 32 Patient Condition:: Stable Medical Necessity - Tobacco Use Smoking Status: Never smoker Tobacco Use: Non-smoker Meaningful Use Info Meaningful Use Diagnoses (Choose all that apply): None applicable Inpatient E&M: 82281 [facility]
--- NOTE | 2020-06-23 14:30 | NURSING ---
Patient discharged home. Education complete. Patient denies questions. Patient to follow up with primary care outpatient. Patient stated appointment set.
[2020-06-27 14:09] LABS: Protein C Antigen 99 % (60-150); Protein C, Functional 137 % (73-180)
[2020-06-27 20:14] LABS: Anti-Cardiolipin Ab, IgG, Qn 12 GPL U/mL (0-14); Anti-Cardiolipin Ab, IgM, Qn 16 MPL U/mL (0-12); Antithrombin 3 Function 171 % (75-135); Protein S, Free 39 % (57-157); Protein S, Funtional 31 % (63-140); Protein S, Total 56 % (60-150)
== END 2020-06-23 08:23 | disposition home or self-care (01) ==
LOC: ED 14:16 → PCU 14:41
PROVIDERS: Admitting Provider Family Medicine; Emergency Provider Emergency Medicine; PCP Internal Medicine; Visit Provider Hospitalist
DX: I26.99 Other pulmonary embolism without acute cor pulmonale (principal); J18.9 Pneumonia, unspecified organism; K58.9 Irritable bowel syndrome, unspecified; Z79.899 Other long term (current) drug therapy; I49.8 Other specified cardiac arrhythmias; F41.9 Anxiety disorder, unspecified
CPT/HCPCS: 36415; 71045; 71275; 74177; 80048; 80076; 81001; 81240; 81241; 83690; 83880; 84484; 84703; 85025; 85300; 85301; 85302; 85303; 85305; 85306; 85379; 86146; 86147; 87426; 87635; 93005; 96361; 96365; 96366; 96367; 96375; 96376; 99218; 99285; J7030; Q9967; A4216; G0378; J2405; U0002

== ENCOUNTER → 2020-06-28 15:08 | Outpatient (CLI) | payer OTHER, BC, MEDICAID, SELFPAY ==
[2020-06-21 15:43] VITALS: BMI 39.2
--- NOTE | 2020-06-28 15:24 | VDLE_ITS ---
Reason For Study: PE with infarction RIGHT LEFT GSV is normal. GSV is normal. CFV is compressible, spontaneous, phasic, CFV is compressible, spontaneous, phasic, competent and demonstrates normal competent, and demonstrates normal augmentation. augmentation. FV is compressible, spontaneous, phasic, FV is compressible, spontaneous, phasic, competent and demonstrates normal competent and demonstrates normal augmentation. augmentation. PTV is compressible. POP V is compressible, spontaneous, phasic, Acute deep vein thrombosis is noted in the competent and demonstrates normal right PopV, T/P Trunk, PeroV and SoleusV. augmentation. Procedure T/P Trunk is compressible. This is a venous duplex using B-mode, color PTV is compressible. flow and spectral Doppler. LT PerV is compressible. Exam performed in department. A preliminary report was called and/or faxed to [facility]. Interpretation Summary Acute deep vein thrombosis is noted in the right popliteal vein. Acute deep vein thrombosis is noted in the right tibio-peroneal trunk. Acute deep vein thrombosis is noted in the right peroneal vein. Acute deep vein thrombosis is noted in the right soleus vein. The remainder of the right lower extremity deep venous system is patent and compressible. Deep veins of the left lower extremity are patent and compressible segmentally. There is no evidence of left lower extremity deep vein thrombosis. Valvular competence appears intact within the proximal deep venous systems bilaterally. The great saphenous veins appear bilaterally patent and compressible segmentally. Ordering Physician: Gonzalez Bauman Referring Physician: Monica Carmen Performed By: Yane España RVT
== END ==
PROVIDERS: PCP Internal Medicine; Referring Provider Internal Medicine Hematology & Oncology; Visit Provider Internal Medicine Hematology & Oncology
DX: I26.99 Other pulmonary embolism without acute cor pulmonale (principal)
CPT/HCPCS: 93970

== ENCOUNTER 2021-01-02 18:05 | Emergency (ER) | payer OTHER, BC, MEDICAID, SELFPAY ==
[2021-01-02 18:06] VITALS: BP 124/89; PULSE 99; RESP 18; TEMP 36.6; O2SAT 96; BMI 40.7
--- NOTE | 2021-01-02 18:47 | EX.ED.DYSGE1 ---
HPI History of Present Illness Chief Complaint: Sore Throat Informant: patient Onset/Context/Timing Onset: Days (2) Context: Gradual Onset Timing: Continuous Quality: Scratchy Location: Throat Worsened by: Nothing Relieved by: Nothing Narrative Narrative: Patient presents with a sore throat that has been getting worse over the past 2 days. Patient states she was exposed to someone with COVID-19 6 days ago. Patient states her throat feels scratchy. Patient states nothing makes it worse and nothing makes it better. Patient denies any fevers or chills. Patient admits to nausea but denies any vomiting. Patient admits to pain in her back. Patient also admits to a mild headache. Patient denies any cough. Patient denies any shortness of breath. Patient denies any chest pain. [facility] Medical History (Updated 01/02/21 @ 20:[address] Gregory Ramirez, ) POTS (postural orthostatic tachycardia syndrome) Home Medications albuterol sulfate [Ventolin HFA] 2 puff INHALATION Q4H PRN PRN 08/29/15 [History Last Taken Unknown] colestipol 3 tab PO DAILY 06/21/20 [History Last Taken 06/20/20] drospirenone-ethinyl estradiol 1 ea PO DAILY 06/21/20 [History Last Taken 06/20/20] fludrocortisone 0.15 mg PO DAILY 06/21/20 [History Last Taken 06/20/20] fluvoxamine 50 mg PO QHS 06/21/20 [History Last Taken 06/20/20] lorazepam 1 mg PO DAILY PRN PRN 06/21/20 [History Last Taken 06/20/20] metoprolol tartrate 25 mg PO TID 06/21/20 [History Last Taken 06/20/20] midodrine 2.5 mg PO TID 06/21/20 [History Last Taken 06/20/20] potassium chloride 10 meq PO BID 06/21/20 [History Last Taken 06/20/20] apixaban 10 mg PO BID #90 tab 06/23/20 [Rx Last Taken Unknown] levofloxacin 750 mg PO DAILY #5 tab 06/23/20 [Rx Last Taken Unknown] Allergy/AdvReac Type Severity Reaction Status Date / Time sulfamethoxazole Allergy Mild Rash Verified 06/21/20 09:00 [From Bactrim] trimethoprim [From Bactrim] Allergy Mild Rash Verified 06/21/20 09:00 naproxen [From Naprosyn] Allergy Anaphylaxis Verified 06/21/20 09:00 topiramate [From Topamax] Allergy Hives Verified 06/21/20 09:00 sulfate drugs Allergy Hives Uncoded 06/21/20 09:00 tape Allergy Rash Uncoded 06/21/20 09:00 Surgical History (Updated 01/02/21 @ 18:[address] Gregory Ramirez DO) Hx of appendectomy Hx of cholecystectomy Social History Smoking Status: Never smoker ROS ROS ED Constitutional Constitutional ED: Denies chills or fever(s) Eyes Eyes: Denies blurry vision or change in vision ENT ENT ED: Reports sore throat; Denies rhinorrhea Cardiovascular Cardiovascular: Denies chest pain or palpitations Respiratory/Chest Respiratory/Chest: Denies cough or dyspnea Gastrointestinal Gastrointestinal: Reports nausea; Denies vomiting Genitourinary Genitourinary ED: Denies dysuria or hematuria Musculoskeletal Musculoskeletal: Reports back pain; Denies neck pain Integumentary Denies abscess or rash Neurologic Neurologic: Reports headache(s); Denies weakness Allergic/Immunologic Allergic/Immunologic ED: Denies mouth swelling or urticaria EXAM Physical Exam Const Vital Signs: 01/02/21 18:06 01/02/21 18:57 Temperature 97.9 F Temperature Source Temporal Pulse Rate 99 Respiratory Rate 18 Respiratory Effort Normal Non-Labored Blood Pressure 124/89 H Blood Pressure Mean 100 Pulse Ox 96 Oxygen Delivery Method Room Air Positive well nourished and well developed General Appearance ED: well developed HEENT Reports moist mucous membranes Neck supple and no JVD Resp normal respiratory effort and clear to auscultation bilaterally Cardio regular rate, regular rhythm and no murmurs GI normal to inspection, nondistended, normoactive bowel sounds and non-tender Palpation: soft Extremity normal to inspection Neuro oriented x3, CN's II-XII intact bilaterally and no sensory deficits noted Sensorium / Orientation: alert Motor Exam: strength 5/5 throughout Psych mental status grossly normal Skin no rashes or lesions noted MDM MDM MDM Narrative Medical decision making narrative: COVID-19 rapid antigen was obtained and was negative. Patient was advised of her findings. Patient was advised to follow-up with her primary care physician in 5 to 7 days. Patient understood and was agreeable with the plan. All questions were answered. Discharge Plan Triage Chief Complaint: Sore Throat ED Provider: Gregory Ramirez Dx/Rx/DC Orders Clinical Impression: Viral URI, Exposure to COVID-19 virus Instructions: ED URI, Viral, No Abx (Adult) Prescriptions: No Action albuterol sulfate [Ventolin HFA] 1 INHALER inhaler 2 puff inhalation Q4H PRN PRN (Reason: Shortness Of Breath) RF: 0 midodrine 2.5 MG tablet 2.5 mg PO TID RF: 0 fluvoxamine 50 MG tablet 50 mg PO QHS RF: 0 fludrocortisone 0.1 MG tablet 0.15 mg PO DAILY RF: 0 colestipol 1 GM tablet 3 tab PO DAILY RF: 0 drospirenone-ethinyl estradiol 1 EACH tablet 1 ea PO DAILY RF: 0 metoprolol tartrate 25 MG tablet 25 mg PO TID RF: 0 lorazepam 1 MG tablet 1 mg PO DAILY PRN PRN (Reason: Anxiety) RF: 0 potassium chloride 10 MEQ tablet,ER particles/crystals 10 meq PO BID RF: 0 apixaban 5 MG tablet 10 mg PO BID Qty: 90 RF: 0 levofloxacin 750 MG tablet 750 mg PO DAILY Qty: 5 RF: 0 Primary Care Provider: Monica Carmen Referrals: Monica Carmen MD [Primary Care Provider] - 5-7 Days Disposition Disposition: Home, Self Care
== END 2021-01-02 20:12 | disposition home or self-care (01) ==
PROVIDERS: Emergency Provider Emergency Medicine; PCP Internal Medicine
DX: J06.9 Acute upper respiratory infection, unspecified (principal); Z20.822 Contact with and (suspected) exposure to COVID-19
CPT/HCPCS: 87426; 99282